=== PATIENT | female | born 1965 ===

== ENCOUNTER → 2024-08-06 10:22 | Outpatient (REF) | payer OTHER, SELFPAY | LOC: HWWDC 10:22 | PROVIDERS: ATTENDING PHYSICIAN Family Medicine | DX: Z12.31 Encounter for screening mammogram for malignant neoplasm of breast (principal); Z87.891 Personal history of nicotine dependence; R05.3 Chronic cough | CPT/HCPCS: 71046; 77063; 77067 ==